=== PATIENT | male | born 1990 | race Caucasian/White ===

== ENCOUNTER 2018-06-02 04:16 | Emergency (ER) | payer SELFPAY ==
[2018-06-02] MEDS: DIPHTH/TET/ACEL PERTUSS (ADULT) 0.5 ML VIAL IM* (06:13)
[2018-06-02] MEDS: LACTATED RINGER'S 1,000 ML IV (06:13)
[2018-06-02] MEDS: LIDOCAINE 1% (MPF) 5 ML VIAL INJ (06:26)
== END 2018-06-02 09:08 | disposition home or self-care (01) ==
LOC: E/R 04:16
DX: S01.01XA Laceration without foreign body of scalp, initial encounter (principal); S01.81XA Laceration without foreign body of other part of head, initial encounter; R51 Headache; R40.2142 Coma scale, eyes open, spontaneous, at arrival to emergency department; R40.2252 Coma scale, best verbal response, oriented, at arrival to emergency department; R40.2362 Coma scale, best motor response, obeys commands, at arrival to emergency department; S09.90XA Unspecified injury of head, initial encounter; Y08.89XA Assault by other specified means, initial encounter; Y92.9 Unspecified place or not applicable
CPT/HCPCS: 12002; 70450; 70486; 71045; 73562; 99285-25